=== PATIENT | male | born 1985 | race Two or more races ===

== ENCOUNTER 2017-10-23 17:48 | Emergency (ER) | payer SELFPAY ==
[2017-10-23] MEDS ORDERED: Diphtheria,Pertussis(Acell),Tetanus Vaccine 0.5 ML Syringe IM ONE (17:49)
[2017-10-23] MEDS ORDERED: Sodium Chloride 0.9% 10 ML Syringe FLUSH PRN ×2 (17:49)
[2017-10-23] MEDS ORDERED: Sodium Chloride 0.9% 2.5 ML Syringe FLUSH PRN ×2 (17:49)
[2017-10-23] MEDS ORDERED: Sodium Chloride 0.9% 1,000 ML IV ONE (17:49)
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
[2017-10-23] MEDS ORDERED: LORazepam 2 MG/ML SDV IVPUSH ONE (18:00)
[2017-10-23] MEDS ORDERED: LORazepam 2 MG/ML SDV ONE (18:05)
[2017-10-23 18:36] LABS: CHLORIDE,CL 104 mmol/L (98-107); SODIUM,NA 140 mmol/L (136-148)
--- NOTE | 2017-10-24 14:30 | CR ---
EXAM DATE: 10/23/17 PATIENT'S AGE: 31 Patient: YOEL PACK Facility: [place], [place] Site . Site : 1985 Study: XRay Chest [id number]/22/2018 6:04:12 PM Ordering Physician: Doctor Garcia Final Report: INDICATION: Chest Trauma TECHNIQUE: Chest radiograph 1 view COMPARISON: None FINDINGS: Mediastinum: The mediastinum is normal in appearance. The heart silhouette is normal in size and morphology. Lungs: Both lungs are unremarkable in appearance. No sign of pleural effusion seen. No pneumothorax is identified. Bones and soft tissue: Unremarkable for age. IMPRESSION: 1. No acute cardiopulmonary disease is seen. Dictated by: Rojelio Arias MD @ 10/23/2017 18:20:34 (Electronic Signature) Report Signed by Proxy. [facility]
--- NOTE | 2017-10-24 14:31 | CR ---
EXAM DATE: 10/23/17 PATIENT'S AGE: 31 Patient: YOEL PACK Facility: [place], [place] Site . Site : 1985 Study: XRay Pelvis [id number]/22/2018 6:04:33 PM Ordering Physician: Doctor Garcia Final Report: INDICATION: Pelvis trauma TECHNIQUE: Pelvis radiograph 1 view COMPARISON: None FINDINGS: Bones: No acute fractures or aggressive bone lesions are identified. Evaluation of the bilateral femoral neck is limited due to foreshortening from external rotation of the leg. Joints: The hip joint is unremarkable. The visualized sacroiliac joints are unremarkable in appearance. The pubic symphysis is normal in appearance. Soft tissues: Unremarkable. The visualized bowel gas pattern of the pelvis is unremarkable in appearance. No radiopaque foreign bodies are seen. IMPRESSIONS: 1. No acute osseous injuries or abnormalities are noted. 2. Evaluation of the bilateral femoral neck is limited due to foreshortening from external rotation of the leg. If there is a high clinical index of suspicion of traumatic injury, evaluation with dedicated hip radiographs is recommended. Dictated by Rojelio Arias MD @ 10/23/2017 6:21:32 PM Dictated by: Rojelio Arias MD @ 10/23/2017 18:21:35 (Electronic Signature) Report Signed by Proxy. ELEANOR
--- NOTE | 2017-10-24 14:35 | CT ---
EXAM DATE: 10/23/17 PATIENT'S AGE: 31 Patient: YOEL PACK Facility: [place], [place] Site . Site : 1985 Study: CT Head [id number]/22/2018 6:24:46 PM Ordering Physician: Doctor Garcia Final Report: INDICATION: Head trauma TECHNIQUE: CT Head without i.v. contrast. CONTRAST: None COMPARISON: None FINDINGS: CSF spaces: The ventricles are normal for age. Brain: There is a 7 mm hyperdense focus near the jean-white matter junction of the right frontal lobe, likely due to a small focus of hemorrhage, likely related to shear injury. No mass-effect or midline shift is seen. Calvarium: The visualized paranasal sinuses are well aerated. The mastoid air cells are clear. The visualized orbits are grossly unremarkable. The calvarium is unremarkable in appearance with no fractures identified. IMPRESSION: 1. There is a 7 mm hyperdense focus near the jean-white matter junction of the right frontal lobe, likely due to a small focus of hemorrhage, likely related to shear injury. The findings were discussed with Dr. Vallecillo at 6:43 PM. Dictated by Rojelio Arias MD @ 10/23/2017 6:41:31 PM Please note that all CT scans at this facility use dose modulation, iterative reconstruction, and/or weight-based dosing when appropriate to reduce radiation dose to as low as reasonably achievable. Dictated by: Rojelio Arias MD @ 10/23/2017 18:43:49 (Electronic Signature) Report Signed by Proxy. [facility]
--- NOTE | 2017-10-24 14:37 | CR ---
EXAM DATE: 10/23/17 PATIENT'S AGE: 31 Patient: YOEL PACK Facility: [place], [place] Site . Site : 1985 Study: XRay Extremity Right ankle [id number]/22/2018 6:42:59 PM Ordering Physician: Doctor Garcia Final Report: INDICATION: Trauma. TECHNIQUE: Three views right ankle COMPARISON: None FINDINGS: Bones: No acute fracture. No dislocation. No suspicious bone lesion. Joint spaces: Unremarkable. Soft tissues: No radiopaque foreign body. IMPRESSION: No acute osseous abnormality. Dictated by Newton Beyer MD @ 10/23/2017 7:11:26 PM Dictated by: Newton Beyer MD @ 10/23/2017 19:11:30 (Electronic Signature) Report Signed by Proxy. MTDKathryn
--- NOTE | 2017-10-24 14:38 | CT ---
EXAM DATE: 10/23/17 PATIENT'S AGE: 31 Patient: YOEL PACK Facility: [place], [place] Site . Site : 1985 Study: CT Chest [id number]/22/2018 6:47:35 PM Ordering Physician: Doctor Garcia Final Report: INDICATION: Chest trauma TECHNIQUE: CT chest with i.v. contrast during the venous phase. Coronal and sagittal reformats were obtained. CONTRAST: 100 mL Isovue 370 COMPARISON: None FINDINGS: Moderate image quality degradation noted due to beam hardening artifacts from scanning with the arms by the patient`s sides. Cardiovascular: The heart has an unremarkable appearance and size. The pulmonary arteries are unremarkable in appearance. No sign of aneurysm or dissection in the thoracic aorta. Mediastinum: No mass or adenopathy seen. Lungs: No pulmonary contusion or laceration or pneumothorax seen. Pleura and pericardium: No sign of pleural effusion seen. No significant pericardial effusion is present. Chest wall and axilla: Ill-defined soft tissue is seen in the retroareolar complexes of the chest bilaterally and most likely due to gynecomastia. Bones: Unremarkable for age. Upper abdomen: Unremarkable. IMPRESSION: 1. Unremarkable CT appearance of the chest. Dictated by Rojelio Arias MD @ 10/23/2017 7:18:16 PM Please note that all CT scans at this facility use dose modulation, iterative reconstruction, and/or weight-based dosing when appropriate to reduce radiation dose to as low as reasonably achievable. Dictated by: Rojelio Arias MD @ 10/23/2017 19:18:21 (Electronic Signature) Report Signed by Proxy. ELEANOR
--- NOTE | 2017-10-24 14:39 | CT ---
EXAM DATE: 10/23/17 PATIENT'S AGE: 31 Patient: YOEL PACK Facility: [place], [place] Site . Site : 1985 Study: CT Abdomen/Pelvis [id number]/22/2018 6:51:23 PM Ordering Physician: Doctor Garcia Final Report: INDICATION: Abdominal trauma TECHNIQUE: CT Abdomen and pelvis with i.v. contrast. Coronal and sagittal reformats were obtained. CONTRAST: 100 mL Isovue 370 COMPARISON: None FINDINGS: Moderate degradation of image quality is present due to the patient`s inability to maintain a breath hold. Lower chest: Unremarkable. Liver: Unremarkable. Spleen: Unremarkable. Pancreas: Unremarkable. Gallbladder: Unremarkable. Kidney: Unremarkable. No kidney or ureteral stones or obstruction seen. Adrenal: Unremarkable. Bowel: There is a gasless density near the ileocecal valve without any apparent obstruction of the terminal ileum. This is most likely due to small bowel contents incompletely mixing with cecal stool. Mild wall thickening of the gastric antrum is present. The appendix is not identified. Vascular: Unremarkable. Lymph: Unremarkable. Peritoneum: Unremarkable. No pneumoperitoneum is seen. No significant ascites is noted. Pelvis: Unremarkable. Soft tissue: Unremarkable. Bone: Unremarkable for age. IMPRESSION: 1. Mild wall thickening of the gastric antrum is present. This may be due to gastritis or peptic ulcer disease but bowel wall hematoma may have this similar appearance. Confirmation with barium GI series or endoscopy may be helpful as well as clinical follow-up. Dictated by Rojelio Arias MD @ 10/23/2017 7:21:32 PM Please note that all CT scans at this facility use dose modulation, iterative reconstruction, and/or weight-based dosing when appropriate to reduce radiation dose to as low as reasonably achievable. Dictated by: Rojelio Arias MD @ 10/23/2017 19:21:34 (Electronic Signature) Report Signed by Proxy. [facility]
--- NOTE | 2017-10-24 14:40 | CT ---
EXAM DATE: 10/23/17 PATIENT'S AGE: 31 Patient: YOEL PACK Facility: [place], [place] Site . Site : 1985 Study: CT Spine Cervical [id number]/22/2018 6:51:59 PM Ordering Physician: Doctor Garcia Final Report: INDICATION: Neck Trauma TECHNIQUE: CT cervical spine without i.v. contrast. Coronal and sagittal reformats were obtained. CONTRAST: None COMPARISON: None FINDINGS: Alignment: Unremarkable. Bones: No acute fractures or aggressive bone lesions are identified. Disc: The disc spaces are unremarkable in appearance. The facet joints are unremarkable. Soft tissue: The prevertebral soft tissues are unremarkable in appearance. The visualized lung apices and mediastinum are unremarkable. IMPRESSION: 1. No acute osseous injuries are identified. Please note that all CT scans at this facility use dose modulation, iterative reconstruction, and/or weight-based dosing when appropriate to reduce radiation dose to as low as reasonably achievable. Dictated by: Rojelio Arias MD @ 10/23/2017 20:07:04 (Electronic Signature) Report Signed by Proxy. [facility]
== END 2017-10-23 19:20 ==
LOC: MW.ED 17:48
DX: S06.309A Unspecified focal traumatic brain injury with loss of consciousness of unspecified duration, initial encounter (principal); S30.810A Abrasion of lower back and pelvis, initial encounter; S40.811A Abrasion of right upper arm, initial encounter; S60.811A Abrasion of right wrist, initial encounter; V86.59XA Driver of other special all-terrain or other off-road motor vehicle injured in nontraffic accident, initial encounter
CPT/HCPCS: 70450; 71045; 71260; 72125; 72170; 73610; 74177; 80053; 80305; 81001; 82150; 82550; 83690; 85025; 85610; 86850; 86900; 86901; 93005; 96361; 96374; 99291; 99292; G0390; G0480; J2060; J7040